=== PATIENT | female | born 1990 | race Caucasian/White ===

== ENCOUNTER → 2016-08-15 | Outpatient (CLI) | payer OTHER ==
[~2016-08-15] MED LIST: ACET500C PO; BACT800T5 PO
--- NOTE | 2016-08-15 11:03 | RADRPT ---
EXAM DATE/TIME: 08/15/2016 10:25 [place] COMPARISON: No previous studies available for comparison. INDICATIONS : Elevated Bilirubin. Right upper quandrant pain. MEDICAL HISTORY : Right upper quandrant pain. SURGICAL HISTORY : None. ENCOUNTER: Initial ACUITY: 1 day PAIN SCORE: 2/10 LOCATION: Right upper quadrant MEASUREMENTS: LIVER: 16.4 cm length COMMON DUCT: 3 mm RIGHT KIDNEY: 9.7 x 3.5 x 4.9 cm FINDINGS: LIVER: Normal echotexture without focal lesion or ductal dilatation. Hepatopedal flow within the portal vein . COMMON DUCT: No intraluminal mass or stone visualized. GALLBLADDER: Contains no stones, demonstrates no wall thickening or pericholecystic fluid. PANCREAS: The visualized portions are within normal limits. RIGHT KIDNEY: No evidence of hydronephrosis, stone, or mass. CONCLUSION: Normal examination. Parth Gill Jr., MD on August 15, 2016 at 10:59 Board Certified Radiologist. This report was verified electronically.
== END ==
LOC: HRAD 10:02
PROVIDERS: ATTEND Internal Medicine Geriatric Medicine
DX: R10.13 Epigastric pain (principal); R79.89 Other specified abnormal findings of blood chemistry; R17 Unspecified jaundice
CPT/HCPCS: 76705

== ENCOUNTER 2016-11-17 15:01 | Emergency (ER) | payer OTHER ==
[~2016-11-17] VITALS: Ht 157.5 cm; Wt 50.0 kg
[~2016-11-17 15:01] MED LIST changes: -BACT800T5 PO
[2016-11-17 15:04] VITALS: BP 128/63; PULSE 90; RESP 20; TEMP 97.9; O2SAT 95
--- NOTE | 2016-11-17 15:13 | PD ---
HPI . right axilla bumps/pustules x 6 days Chief Complaint: Skin Problem Time Seen by Provider: 15:11 Travel History International Travel<30 days: No Contact w/Intl Traveler<30days: No Traveled to known affect area: No History of Present Illness HPI 26-year-old female with no significant past medical history here with complaints of right axilla pustules/bumps for about 6 days. Patient says that she thought she initially had ingrown hair, but was not certain. She says that gradually the area started to become more painful and she noticed the addition of new pustules. She denies any fever or chills. She does admit to recent shaving. She has no other complaints. [facility]LY [facility] Past Medical History Medical History: Denies Significant Hx Anxiety: Yes Depression: Yes Diminished Hearing: No Immunizations Current: Yes ?: Not LMP: October : 3 Para: 2 Miscarriage: 1 Social History Alcohol Use: Yes (mix drinks socially) Tobacco Use: No Substance Use: No Allergies-Medications (Allergen,Severity, Reaction): Coded Allergies: No Known Allergies (Verified , 08/07/16) Reported Meds & Prescriptions Reported Meds & Active Scripts Active Bactrim DS (Sulfamethoxazole-Trimethoprim) 800-160 Mg Tab 1 Tab PO BID Acetaminophen 500 Mg Cap 500 Mg PO Q6HR PRN 5 Days Review of Systems General / Constitutional: No: Fever Eyes: No: Visual changes HENT: No: Headaches Cardiovascular: No: Chest Pain or Discomfort Respiratory: No: Shortness of Breath Gastrointestinal: No: Abdominal Pain Genitourinary: No: Dysuria Musculoskeletal: No: Pain Skin: Positive Other (pustules right axilla ), No Rash Neurologic: No: Weakness Psychiatric: No: Depression Endocrine: No: Polydipsia Hematologic/Lymphatic: No: Easy Bruising Physical Exam Narrative GENERAL: AAO x 3, no acute distress, Well-nourished, well-developed patient. SKIN: Warm and dry. No visible rashes or bruising. Right axilla with a visible pustules, and 2 larger areas ( 1 cm circular) of induration that are not fluctuant. No definitive fluid collection. This appears to be folliculitis. Area is erythematous and warm to touch. HEAD: Normocephalic and atraumatic. EYES: No scleral icterus. No injection or drainage. ENT: No nasal drainage noted. Mucous membranes pink. Airway patent. NECK: Supple, trachea midline. No JVD. No axillary lymphadenopathy CARDIOVASCULAR: Regular rate and rhythm without murmurs, gallops, or rubs. RESPIRATORY: Breath sounds equal bilaterally. No accessory muscle use. No rhonchi or rales. GASTROINTESTINAL: Visual inspection normal EXTREMITIES: No cyanosis or edema. BACK: Nontender without obvious deformity. No CVA tenderness. PSYCH: AAO x 3, normal affect. Data Data Last Documented VS Vital Signs Date Time Temp Pulse Resp B/P Pulse Ox O2 Delivery O2 Flow Rate FiO2 11/17/16 15:04 97.9 90 20 128/63 95 Room Air MDM Medical Decision Making Medical Screen Exam Complete: Yes Emergency Medical Condition: Yes Medical Record Reviewed: Yes Differential Diagnosis folliculitis, cellulitis, less likely abscess Narrative Course This is 26-year-old female here with what appears to be folliculitis/cellulitis. She does not have a definitive abscess, therefore there no need for incision and drainage. I will prescribe her course of Bactrim to cover for MRSA. She can use [id number] Tylenol or Motrin as needed for pain. We discussed safe shaving practices. Patient verbalized understanding of instructions, questions were answered, and thanked me for their care. I advised them if their condition worsens, please return to the nearest emergency room for further care. Diagnosis Primary Impression: Folliculitis Patient Instructions: General Instructions Additional Instructions: Please return to emergency department if your symptoms return or worsen. Follow up with your primary care provider. Take medications as prescribed. [place] for worsening signs of infection which include fever, increased redness , increased warmth, purulent drainage, increased swelling or streaking. If any of these develop, please go to the nearest emergency room. Med/Other Pt SpecificInfo: Prescription(s) given Scripts Sulfamethoxazole-Trimethoprim (Bactrim DS)800-160 Mg Tab1 Tab PO BID #20 TAB Prov:Izzy Gotti DO 11/17/16 Disposition: 01 DISCHARGE HOME Condition: Stable Loida Cuevas November 17, 2016 15:13
[2016-11-17] MEDS ORDERED: BACT800T5 PO (15:14)
== END 2016-11-17 15:36 | disposition home or self-care (01) ==
LOC: NEPK 15:01
DX: L73.9 Follicular disorder, unspecified (principal); F41.8 Other specified anxiety disorders
CPT/HCPCS: 99283